=== PATIENT | male | born 1975 | race Caucasian/White ===

== ENCOUNTER → 2020-07-30 10:11 | Outpatient (CLI) | payer OTHER, SELFPAY ==
--- NOTE | 2020-07-30 10:14 | DI.RAD.S_ITS ---
PROCEDURE: XR CERVICAL SPINE 2V OR 3V INDICATIONS: neck pain TECHNIQUE: 3 view(s) of the cervical spine were acquired. COMPARISON: None. FINDINGS: Bones: No fractures or dislocations to the T1 level. The lateral masses of C1 appear intact on the odontoid view. No suspicious bony lesions. Moderate degenerative disc disease C5-6 and moderate to moderately severe degeneration at C6-7. On the frontal view there is convex rightward scoliosis centered at the midcervical spine and asymmetric left greater than right facet osteoarthritis. Soft tissues: No prevertebral soft tissue swelling. IMPRESSION: Degenerative disc disease and facet osteoarthritis greater on the left than right, to the degree that significant spinal and foraminal stenosis would be suspected. Dictated by: Dayton Harden M.D. on 07/30/2020 at 11:13 Approved by: Dayton Harden M.D. on 07/30/2020 at 11:14
[2020-07-30 11:06] LABS: Add Manual Diff / Slide Review NO; Basophils Absolute Auto 100 /uL (0-100); Basophils Percent Auto 2.1 % (0-2); Eosinophils Absolute Auto 100 /uL (0-450); Eosinophils Percent Auto 2.2 % (2-4); Hematocrit 43.6 % (41-53); Hemoglobin 15.2 g/dL (13.5-17.5); Lymphocytes Absolute Auto 1300 /uL (1100-4500); Lymphocytes Percent Auto 28.4 % (25-40); Mean Corpuscular HGB Conc 34.8 % (30-36); Mean Corpuscular Hemoglobin 29.1 PG (26-34); Mean Corpuscular Volume 83.6 fL (80-100); Monocytes Absolute Auto 500 /uL (0-900); Monocytes Percent Auto 10.5 % (3-14); Neutrophils Absolute Auto 2600 /uL (1500-7000); Neutrophils Percent Auto 56.8 % (50-75); Platelet Count 254 X10^3/uL (150-400); Red Blood Cell Count 5.21 X10^6/uL (4.5-5.9); Red Cell Distribution Width 14.1 % (11.6-14.8); White Blood Cell Count 4.6 X10^3/uL (4.5-11.0)
[2020-07-30 11:17] LABS: Hemoglobin A1C% w Est Avg Glu 5.5 % (4.0-6.0)
[2020-07-30 11:42] LABS: Alanine Aminotransferase 36 IU/L (<50); Albumin 4.4 g/dL (3.5-5.0); Albumin Globulin Ratio 1.6 (1.0-2.8); Alkaline Phosphatase 63 U/L (38-126); Aspartate Aminotransferase 35 IU/L (17-59); BUN Creatinine Ratio 11.1 (6-22); Bilirubin Total 0.2 mg/dL (0.2-1.3); Blood Urea Nitrogen 10 mg/dL (9-20); Calcium 9.6 mg/dL (8.4-10.2); Carbon Dioxide 27 mmol/L (22-32); Chloride 104 mmol/L (98-107); Cholesterol 207 mg/dL (140-199); Estimated Glomerular Filt Rate > 60.0 mL/min (>60); Globulin 2.8 g/dL (1.7-4.1); Glucose 130 mg/dL (70-100); HDL Cholesterol 33 mg/dL (40-60); HEMOLYSIS < 15 (0-50); LDL Cholesterol Calculated 117 mg/dL (<100); Potassium 4.1 mmol/L (3.4-5.1); Sodium 139 mmol/L (137-145); Total Protein 7.2 g/dL (6.3-8.2); Triglycerides 283 mg/dL (35-150)
[2020-07-30 12:13] LABS: TSH w/ Reflex to FT4 1.58 uIU/mL (0.47-4.68)
== END ==
PROVIDERS: PCP Family Medicine; Referring Provider Family Medicine; Visit Provider Family Medicine
DX: M54.2 Cervicalgia (principal); E78.00 Pure hypercholesterolemia, unspecified; Z13.1 Encounter for screening for diabetes mellitus; Z13.228 Encounter for screening for other metabolic disorders; Z13.29 Encounter for screening for other suspected endocrine disorder; Z76.89 Persons encountering health services in other specified circumstances; Z82.49 Family history of ischemic heart disease and other diseases of the circulatory system
CPT/HCPCS: 36415; 72040; 80053; 80061; 83036; 84443; 85025

== ENCOUNTER → 2020-09-01 11:35 | Outpatient (CLI) | payer OTHER, SELFPAY ==
--- NOTE | 2020-09-01 11:36 | DI.MRI.S_ITS ---
PROCEDURE: MR CERVICAL SPINE WO CON INDICATIONS: Pain TECHNIQUE: Noncontrast sagittal T1 spin echo and T2 fast spin echo, sagittal STIR, foraminal oblique sagittal T2 fast spin echo, and axial gradient echo or T2 fast spin echo through the cervical spine. COMPARISON: [facility], CR, XR CERVICAL SPINE 2V OR 3V, 07/30/2020, 11:34. FINDINGS: Image quality: Excellent. Alignment and Curvature: There is moderate diffuse rightward curvature of the cervical spine. Loss of normal cervical lordosis is present. Mild grade 1 retrolisthesis of C3 on C4 is present. Bone Marrow: Marrow demonstrates normal overall signal. C7 hemangioma. Sagittal images demonstrate probable segmentation anomalies involving the upper thoracic spine. There is caninization of the C7 vertebral body. Spinal Cord: Visualized spinal cord has normal size and signal. No cerebellar tonsillar herniation. Paraspinous Soft Tissues: No paravertebral masses. Prevertebral soft tissues are normal in thickness. C2-C3: Mild disc desiccation. No significant canal, or foraminal stenosis. C3-C4: Mild disc desiccation and diffuse disc bulge. Mild facet and uncovertebral hypertrophy bilaterally. Mild canal stenosis. No right foraminal stenosis. Mild left foraminal stenosis. C4-C5: Mild disc height loss and desiccation. Mild diffuse disc bulge. Moderate left and mild right facet and uncovertebral hypertrophy. Mild canal stenosis. No right foraminal stenosis. Severe left foraminal stenosis with associated left L5 nerve root compression. C5-C6: Mild disc desiccation and diffuse disc bulge. Mild facet and uncovertebral hypertrophy, left greater than right. Mild canal stenosis. Moderate left and mild right foraminal stenosis. C6-C7: Moderate disc desiccation. Moderate diffuse disc bulge. Mild facet and uncovertebral hypertrophy bilaterally. Mild canal stenosis. Mild bilateral left greater than right foraminal stenosis. C7-T1: Mild disc desiccation and diffuse disc bulge. Mild facet and uncovertebral hypertrophy bilaterally. Mild canal stenosis. Mild bilateral foraminal stenosis. IMPRESSION: 1. Multilevel degenerative disc and facet disease, as well as uncovertebral hypertrophy. 2. Mild multilevel canal stenosis. 3. Multilevel foraminal stenoses, worst at C4-C5 on the left where there is associated intraforaminal nerve root compression. Recommend correlation with clinical symptoms to ascertain relevance of this finding. 4. Incompletely visualized segmentation anomalies within the upper thoracic spine. Thoracic spine CT could be performed for further assessment, if clinically indicated. There is associated rightward curvature of the cervical spine. Dictated by: Galina Gregory M.D. on 09/03/2020 at 8:42 Approved by: Galina Gregory M.D. on 09/03/2020 at 8:49
== END ==
PROVIDERS: PCP Family Medicine; Referring Provider Family Medicine; Visit Provider Family Medicine
DX: M47.812 Spondylosis without myelopathy or radiculopathy, cervical region (principal); M50.31 Other cervical disc degeneration, high cervical region; M48.02 Spinal stenosis, cervical region
CPT/HCPCS: 72141

== ENCOUNTER → 2021-05-10 07:58 | Outpatient (CLI) | payer OTHER, SELFPAY ==
[2021-05-10 09:52] LABS: Alanine Aminotransferase 44 IU/L (<50); Albumin 4.4 g/dL (3.5-5.0); Albumin Globulin Ratio 1.5 (1.0-2.8); Alkaline Phosphatase 68 U/L (38-126); Aspartate Aminotransferase 43 IU/L (17-59); BUN Creatinine Ratio 16.3 (6-22); Bilirubin Total 0.5 mg/dL (0.2-1.3); Blood Urea Nitrogen 14 mg/dL (9-20); Calcium 9.3 mg/dL (8.4-10.2); Carbon Dioxide 24 mmol/L (22-32); Chloride 103 mmol/L (98-107); Cholesterol 199 mg/dL (140-199); Estimated Glomerular Filt Rate > 60.0 mL/min (>60); Globulin 2.9 g/dL (1.7-4.1); Glucose 100 mg/dL (70-100); HDL Cholesterol 29 mg/dL (40-60); HEMOLYSIS < 15 (0-50); LDL Cholesterol Calculated 122 mg/dL (<100); Potassium 4.5 mmol/L (3.4-5.1); Sodium 138 mmol/L (137-145); Total Protein 7.3 g/dL (6.3-8.2); Triglycerides 241 mg/dL (35-150)
== END ==
PROVIDERS: PCP Family Medicine; Referring Provider Family Medicine; Visit Provider Family Medicine
DX: B35.1 Tinea unguium (principal); E78.1 Pure hyperglyceridemia
CPT/HCPCS: 36415; 80053; 80061

== ENCOUNTER → 2021-11-22 07:43 | Outpatient (CLI) | payer OTHER, SELFPAY ==
[2021-11-22 07:57] LABS: Add Manual Diff / Slide Review NO; Basophils Absolute Auto 0 /uL (0-100); Basophils Percent Auto 0.6 % (0-2); Eosinophils Absolute Auto 200 /uL (0-450); Eosinophils Percent Auto 3.4 % (2-4); Hematocrit 43.2 % (41-53); Hemoglobin 15.1 g/dL (13.5-17.5); Lymphocytes Absolute Auto 1400 /uL (1100-4500); Mean Corpuscular HGB Conc 34.9 % (30-36); Mean Corpuscular Hemoglobin 28.9 PG (26-34); Mean Corpuscular Volume 82.6 fL (80-100); Monocytes Absolute Auto 500 /uL (0-900); Monocytes Percent Auto 10.5 % (3-14); Neutrophils Absolute Auto 2500 /uL (1500-7000); Neutrophils Percent Auto 54.5 % (50-75); Platelet Count 247 X10^3/uL (150-400); Red Blood Cell Count 5.23 X10^6/uL (4.5-5.9); White Blood Cell Count 4.6 X10^3/uL (4.5-11.0)
[2021-11-22 08:27] LABS: Alanine Aminotransferase 57 IU/L (<50); Albumin 4.3 g/dL (3.5-5.0); Albumin Globulin Ratio 1.4 (1.0-2.8); Alkaline Phosphatase 71 U/L (38-126); Aspartate Aminotransferase 52 IU/L (17-59); Bilirubin Total 0.6 mg/dL (0.2-1.3); Blood Urea Nitrogen 16 mg/dL (9-20); Calcium 9.1 mg/dL (8.4-10.2); Carbon Dioxide 24 mmol/L (22-32); Chloride 104 mmol/L (98-107); Cholesterol 209 mg/dL (140-199); Estimated Glomerular Filt Rate > 60 mL/min (>60); Globulin 3.1 g/dL (1.7-4.1); Glucose 107 mg/dL (70-100); HDL Cholesterol 33 mg/dL (40-60); HEMOLYSIS < 15 (0-50); LDL Cholesterol Calculated 122 mg/dL (<100); Potassium 4.2 mmol/L (3.4-5.1); Sodium 139 mmol/L (137-145); Total Protein 7.4 g/dL (6.3-8.2); Triglycerides 271 mg/dL (35-150)
== END ==
PROVIDERS: PCP Family Medicine; Referring Provider Family Medicine; Visit Provider Family Medicine
DX: D22.9 Melanocytic nevi, unspecified (principal); E78.5 Hyperlipidemia, unspecified; R03.0 Elevated blood-pressure reading, without diagnosis of hypertension; Z00.00 Encounter for general adult medical examination without abnormal findings
CPT/HCPCS: 36415; 80053; 80061; 85025

== ENCOUNTER → 2022-02-14 08:50 | Outpatient (CLI) | payer OTHER, SELFPAY ==
[2022-02-14 10:40] LABS: Hemoglobin A1C% w Est Avg Glu 5.6 % (4.0-6.0)
[2022-02-14 10:46] LABS: Alanine Aminotransferase 46 IU/L (<50); Albumin 4.3 g/dL (3.5-5.0); Albumin Globulin Ratio 1.5 (1.0-2.8); Alkaline Phosphatase 71 U/L (38-126); Aspartate Aminotransferase 48 IU/L (17-59); BUN Creatinine Ratio 14.9 (6-22); Bilirubin Total 0.5 mg/dL (0.2-1.3); Blood Urea Nitrogen 14 mg/dL (9-20); Calcium 9.1 mg/dL (8.4-10.2); Carbon Dioxide 26 mmol/L (22-32); Chloride 103 mmol/L (98-107); Estimated Glomerular Filt Rate > 60 mL/min (>60); Globulin 2.9 g/dL (1.7-4.1); Glucose 89 mg/dL (70-100); HEMOLYSIS < 15 (0-50); Potassium 4.6 mmol/L (3.4-5.1); Sodium 138 mmol/L (137-145); Total Protein 7.2 g/dL (6.3-8.2)
== END ==
PROVIDERS: PCP Family Medicine; Referring Provider Family Medicine; Visit Provider Family Medicine
DX: R73.9 Hyperglycemia, unspecified (principal)
CPT/HCPCS: 36415; 80053; 83036

== ENCOUNTER 2022-10-07 02:43 | Emergency (ER) | payer OTHER, SELFPAY ==
[2022-10-07 02:48] VITALS: BP 136/79
[2022-10-07 02:49] VITALS: PULSE 80; O2SAT 97
[2022-10-07 02:53] VITALS: BP 136/79; PULSE 79; RESP 17; TEMP 36.7; O2SAT 96; BMI 34.9
[2022-10-07 03:00] VITALS: PULSE 78; O2SAT 97
--- NOTE | 2022-10-07 03:03 | ED_ITS ---
HPI - General Adult General Chief complaint: Syncope Stated complaint: passed out and hit face on cabinet bleeding Time Seen by Provider: 10/07/22 02:47 Source: patient Mode of arrival: Ambulatory Limitations: no limitations History of Present Illness HPI narrative: Patient is a 47-year-old male who is here for evaluation of injuries that he sustained after passing out at home. He states he has been doing a colonoscopy prep. He was sitting on the toilet 20 states he felt like his heart was beating fast and he passed out falling forward hitting his head on a cabinet door. He reports no other injuries from the event. No neck pain. He does have bleeding from his forehead and nose and upper lip. No dental discomfort. He has passed out 1 time in the past but that was many years ago after he donated blood. He is not on anticoagulation. Related Data Home Medications Medication Instructions Recorded Confirmed ResMed AirSense 11 05/29/21 07/10/22 Previous Rx's Medication Instructions Recorded celecoxib 200 mg capsule (Celebrex) 200 mg PO DAILY #90 caps 07/10/22 fenofibrate nanocrystallized 145 145 mg PO DAILY #90 tabs 07/10/22 mg tablet lisinopril 20 mg tablet 20 mg PO DAILY #90 tabs 07/10/22 Allergies Allergy/AdvReac Type Severity Reaction Status Date / Time Penicillins Allergy Severe Swelling Verified 07/10/22 14:34 (Childhood) morphine Allergy Intermediate DIFFICULT Verified 07/10/22 14:34 BREATHING Review of Systems Constitutional Constitutional: Reports system reviewed and no additional complaints, except as documented ENT Ears, Nose, Mouth, and Throat: Reports system reviewed and no additional complaints, except as documented Integumentary/Breasts Skin/Breast: Reports system reviewed and no additional complaints, except as documented Neurologic Neurologic: Reports system reviewed and no additional complaints, except as documented Hematologic/Lymphatic On Anticoagulants: No Patient History Medical History Allergies (~2005) Ankle pain (~2005) Biceps tendinitis Borderline hyperlipidemia Borderline hypertension Chicken pox (~1980) Degenerative joint disease of hand Facet arthropathy, cervical Family history of coronary artery disease Foraminal stenosis of cervical region Fractures (~2005) Headache (~1998) HNP (herniated nucleus pulposus), cervical Hyperglycemia Hypertension Hypertriglyceridemia Impingement syndrome of left shoulder Impingement syndrome of right shoulder Itchy skin (~2011) Knee pain (~2018) Multiple nevi Sleep apnea (~2017) Tinnitus (~2012) Toenail fungus Well adult exam Surgical History Anesthesia History of ankle surgery (~2005) History of cholecystectomy (~2000) History of photorefractive keratectomy (~2007) Family History Father Mental health problem Mother Cervical cancer Diabetes mellitus Sister Chiari syndrome Grandfather History of heart disease Hypertension Stroke Grandmother Diabetes mellitus History of heart disease Hyperlipidemia Grandmother Mental health problem Social History Smoking Status: Former smoker Tobacco: How many years used: 18 quit status: considering quitting alcohol intake: current substance use type: marijuana Smoking Status: Former smoker alcohol intake frequency: holidays/special occasions only Substance Use Type: does not use Exam Initial Vital Signs Initial Vital Signs: Vital Signs Temperature 98.1 F 10/07/22 02:53 Pulse Rate 79 10/07/22 02:53 Respiratory Rate 17 10/07/22 02:53 Blood Pressure 136/79 10/07/22 02:53 Pulse Oximetry 96 10/07/22 02:53 Oxygen Delivery Method Room Air 10/07/22 02:53 Const General: cooperative, comfortable and No ill appearing HENMT Nose: nares normal, No epistaxis and No nasal discharge Mouth: oral mucosae normal Teeth and gingiva: dentition normal Back/Spine/Pelvis Cervical Spine: No cervical spinal tenderness Skin Other: Patient with a 3 cm laceration in the mid portion of his forehead. Right below that there is a small skin tear. He also has a skin tear over the bridge of his nose and small abrasions over his left nares. He also has an abrasion to his left upper lip. Neuro General: patient alert, patient awake, patient oriented x3 and moves all extremities Extrem General: capillary refill normal Procedures Laceration Repair Laceration 1: Site: face (Forehead) Size (cm): 3 Description: linear Depth: simple, single layer Local Anesthetic: lidocaine 1% Amount of anesthesia used (mL): 3 Pre-repair: wound explored and irrigated extensively Skin layer closed with: nylon Skin layer suture size: 5-0 Number of sutures: 7 Technique: simple, interrupted Scores GCS Marly coma scale eye opening: Spontaneous [place] coma scale verbal response: Orientated Marly coma scale motor response: Obey commands Marly coma scale total score: 15 Nexus Score for C-Spine Focal Neurologic deficit present: No Midline spinal tenderness present: No Altered level of conciousness present: No Intoxication present: No Distracting Injury Present: No Nexus Criteria for C-spine: 0 Course Orders Ordered: ED Orders 10/07/22 02:48 EKG-12 Lead Stat Discontinued Medications Bacitracin (Bacitracin Oint 0.9 Gm Pckt) 1 applic TOP NOW ONE Stop: 10/07/22 03:17 Last Admin: 10/07/22 03:57 Dose: 1 applic Documented By: GABY Lidocaine HCl (Lidocaine 1% (Pf) 2ml) 2 ml INJ NOW ONE Stop: 10/07/22 03:51 Lidocaine HCl (Lidocaine 1% (Pf) 5 Ml) 5 ml INJ NOW ONE Stop: 10/07/22 03:55 Last Admin: 10/07/22 03:56 Dose: 5 ml Documented By: SB Vital Signs Vital signs: Vital Signs - 8 hr 10/07/22 02:53 Temperature 98.1 F Pulse Rate 79 Respiratory Rate 17 Blood Pressure 136/79 Pulse Oximetry 96 Oxygen Delivery Method Room Air Medical Decision Making ECG Data Attestation: I personally reviewed and interpreted this ECG as follows: Interpretation: Sinus rhythm Ventricular rate is 78 Normal axis Normal QRS Normal QTC No ST T wave changes MDM Narrative Medical decision making narrative: Patient did have a syncopal episode while sitting on the toilet. Most likely related to his prep from the colonoscopy. He had 1 injury to his forehead that required stitches that was closed as described above the rest of the areas were skin tears and abrasions not requiring stitches. His cervical spine is cleared by nexus criteria. No other injuries reported by the patient or found on the exam. We will hold on any further workup for now. Patient was given return precautions and follow-up instructions. He expressed understanding and agreement. Discharge Plan Departure Patient Disposition: Home Clinical Impression: Laceration, Abrasion of skin, Syncope Instructions: DI for Syncope in Adults (Fainting), DI for Laceration Repair Activity Restrictions/Additional Instructions: The stitches do need to be removed in the next 7-10 days. This can be done by the primary doctor or the walk-in clinic. You can shower like normal. You can put topical antibiotic ointment over the area. I would not be surprised if you develop some bruising/black eyes over the next couple days. You can put ice over the areas if needed. Return to the emergency department for new symptoms. Prescriptions: No Action lisinopril 20 mg tablet 20 mg PO DAILY Qty: 90 3RF Rx Instructions: half pill qd for 4 days then 1 pill qd celecoxib [Celebrex] 200 mg capsule 200 mg PO DAILY Qty: 90 2RF fenofibrate nanocrystallized 145 mg tablet 145 mg PO DAILY Qty: 90 3RF (DME) ResMed AirSense 11 See Rx Instructions .Route .MEDSUPPLY Rx Instructions: CPAP Min: 8 Max: 10 DME: PHM Referrals: Beny Damon DO [Primary Care Provider] - Stand Alone Forms: Patient Portal/API
[2022-10-07] MEDS: LIDOCAINE 1% (PF) 5 ML INJ (03:56)
[2022-10-07] MEDS: BACITRACIN OINT 0.9 GM PCKT 1 APPLIC TOP (03:57)
[2022-10-07 04:25] VITALS: PULSE 73; O2SAT 97
[2022-10-07 04:26] VITALS: BP 119/75; PULSE 72; O2SAT 96
== END 2022-10-07 04:34 | disposition home or self-care (01) ==
PROVIDERS: Emergency Provider Emergency Medicine; PCP Family Medicine
DX: S01.81XA Laceration without foreign body of other part of head, initial encounter (principal); R55 Syncope and collapse; W22.8XXA Striking against or struck by other objects, initial encounter
CPT/HCPCS: 93005

== ENCOUNTER 2022-10-07 10:13 | Day surgery (SDC) | payer OTHER, SELFPAY ==
[2022-10-07 11:09] VITALS: BMI 34.9
[2022-10-07 11:20] VITALS: BP 123/83; PULSE 71; RESP 19; TEMP 36.4; O2SAT 99
[2022-10-07] MEDS: LACTATED RINGERS 1,000 ML 200 ML IV (11:20)
--- NOTE | 2022-10-07 12:19 | PM.HP.1 ---
History of Present Illness History of Present Illness Date Patient Seen: 10/07/22 Time Patient Seen: 12:19 [place] [facility] [place]: The patient presents for colorectal screening. They have never had any previous examination for such. No personal or family history of colon cancer. On further history denies any recent gastrointestinal symptoms. No nausea, vomiting, abdominal pain, loss of appetite, unexplained weight loss, change in bowel habits, or blood per rectum. [facility] Medical History Allergies (~2005) Ankle pain (~2005) Biceps tendinitis Borderline hyperlipidemia Borderline hypertension Chicken pox (~1980) Degenerative joint disease of hand Facet arthropathy, cervical Family history of coronary artery disease Foraminal stenosis of cervical region Fractures (~2005) Headache (~1998) HNP (herniated nucleus pulposus), cervical Hyperglycemia Hypertension Hypertriglyceridemia Impingement syndrome of left shoulder Impingement syndrome of right shoulder Itchy skin (~2011) Knee pain (~2017) Multiple nevi Sleep apnea (~2016) Tinnitus (~2012) Toenail fungus Well adult exam Surgical History Anesthesia History of ankle surgery (~2005) History of cholecystectomy (~2000) History of photorefractive keratectomy (~2007) Family History Father Mental health problem Mother Cervical cancer Diabetes mellitus Sister Chiari syndrome Grandfather History of heart disease Hypertension Stroke Grandmother Diabetes mellitus History of heart disease Hyperlipidemia Grandmother Mental health problem Social History household members: spouse Smoking Status: Former smoker Tobacco: How many years used: 18 quit status: considering quitting alcohol intake: current substance use type: marijuana Meds Home Medications and Allergies Home Medications Medication Instructions Recorded Confirmed Type ResMed AirSense 11 05/29/21 07/10/22 History celecoxib 200 mg capsule (Celebrex) 200 mg PO DAILY #90 caps 07/10/22 07/10/22 Rx fenofibrate nanocrystallized 145 145 mg PO DAILY #90 tabs 07/10/22 07/10/22 Rx mg tablet lisinopril 20 mg tablet 20 mg PO DAILY #90 tabs 07/10/22 07/10/22 Rx Allergies Allergy/AdvReac Type Severity Reaction Status Date / Time Penicillins Allergy Severe Swelling Verified 07/10/22 14:34 (Childhood) morphine Allergy Intermediate DIFFICULT Verified 07/10/22 14:34 BREATHING Exam Vital Signs (past 8 hours): - 10/07/22 11:20 Temperature 97.5 F L Pulse Rate 71 Respiratory Rate 19 Blood Pressure 123/83 Pulse Oximetry 99 Oxygen Delivery Method Room Air Oxygen Delivery Method Room Air Narrative Exam Narrative: General adult man alert oriented no acute distress Assessment & Plan Assessment & Plan narrative: The patient requires colorectal screening and colonoscopy is recommended. Technical details were discussed. Risks, benefits, alternatives explained. Risks including but not limited to myocardial infarction, aspiration, bleeding, pain, missed lesion, incomplete examination, need for further radiographic studies, colonic perforation, and need for major abdominal surgery were discussed. All questions were answered to their satisfaction, and they are in agreement with this plan.
--- NOTE | 2022-10-07 12:37 | PM.OP.COLON ---
Operative Date/Time/Diagnoses Date of procedure: 10/07/22 Time of procedure: 12:38 Pre-op diagnosis: Colorectal screening Post-op diagnosis: same Procedure & Clinicians Study performed: Colonoscopy Same procedure as scheduled: Yes Indications: Colorectal screening Surgeon: Garrison Canales Procedure Notes Procedure in detail: The history and physical was performed/updated and the patient is ASA class is 2. The procedure was discussed in detail with the patient. Potential risks complications including infection, bleeding, missed diagnosis, perforation, need for surgery, and were explained. Their questions were answered and informed consent was obtained. Patient was brought to the procedure room and placed standard monitoring equipment. The patient's vital signs were monitored continuously throughout the entire procedure. Prior to starting time-out was performed. The patient was placed in the left lateral recumbent position. Procedural sedation was administered by anesthesia. Examination began with a thorough inspection of the perianal area there was no evidence of fissures, fistulae, external hemorrhoids or cutaneous malignancy. The colonoscopy scope was then placed into the anal canal and was advanced to the cecum, which was identified by the ileocecal valve, the appendiceal orifice and the confluence of the taenia. The scope was then slowly withdrawn examining colon thoroughly in all directions, irrigating it of any residual stool. Normal healthy colon. No masses polyps or inflammation. The patient tolerated the procedure well. They will be discharged once criteria are met. The prep was of good/excellent quality. The withdrawl time was 6 minutes. Specimen(s): none sent Impression: Normal colonoscopy Post-procedure Recommendations: Colonoscopy in 10 years and High fiber diet Disposition: same day surgery
[2022-10-07 12:41] VITALS: BP 98/75; PULSE 78; RESP 13; TEMP 36.7; O2SAT 95
[2022-10-07 12:48] VITALS: BP 110/79; PULSE 75; RESP 14; O2SAT 97
[2022-10-07 12:51] VITALS: BP 121/87; PULSE 72; RESP 17; O2SAT 97
[2022-10-07 12:53] VITALS: BP 120/89; PULSE 69; RESP 11; TEMP 36.8; O2SAT 99
== END 2022-10-07 13:13 | disposition home or self-care (01) ==
PROVIDERS: PCP Family Medicine; Referring Provider Surgery; Visit Provider Surgery
PROC: 0DJD8ZZ Inspection of Lower Intestinal Tract, Via Natural or Artificial Opening Endoscopic (ICD-10-PCS; CPT 45378; principal; 2022-10-07 11:15)
DX: Z12.11 Encounter for screening for malignant neoplasm of colon (principal); S01.81XA Laceration without foreign body of other part of head, initial encounter; R55 Syncope and collapse; W22.8XXA Striking against or struck by other objects, initial encounter
CPT/HCPCS: 45378; 12013; 93005; 99282; 99283; J2704; J3010

== ENCOUNTER → 2023-02-04 07:23 | Outpatient (CLI) | payer OTHER, SELFPAY ==
[2023-02-04 08:18] LABS: Add Manual Diff / Slide Review NO; Basophils Absolute Auto 100 /uL (0-100); Basophils Percent Auto 2.4 % (0-2); Eosinophils Absolute Auto 100 /uL (0-450); Eosinophils Percent Auto 2.8 % (2-4); Hematocrit 41.2 % (41-53); Hemoglobin 14.4 g/dL (13.5-17.5); Lymphocytes Absolute Auto 1500 /uL (1100-4500); Lymphocytes Percent Auto 34.5 % (25-40); Mean Corpuscular Hemoglobin 28.8 PG (26-34); Mean Corpuscular Volume 82.4 fL (80-100); Monocytes Absolute Auto 500 /uL (0-900); Monocytes Percent Auto 10.3 % (3-14); Neutrophils Absolute Auto 2200 /uL (1500-7000); Platelet Count 256 X10^3/uL (150-400); Red Cell Distribution Width 13.6 % (11.6-14.8); White Blood Cell Count 4.4 X10^3/uL (4.5-11.0)
[2023-02-04 08:39] LABS: Alanine Aminotransferase 47 IU/L (<50); Albumin Globulin Ratio 1.4 (1.0-2.8); Alkaline Phosphatase 71 U/L (38-126); Aspartate Aminotransferase 41 IU/L (17-59); BUN Creatinine Ratio 14.3 (6-22); Bilirubin Total 0.4 mg/dL (0.2-1.3); Blood Urea Nitrogen 12 mg/dL (9-20); Calcium 8.9 mg/dL (8.4-10.2); Carbon Dioxide 27 mmol/L (22-32); Chloride 103 mmol/L (98-107); Cholesterol 184 mg/dL (140-199); Estimated Glomerular Filt Rate > 60 mL/min (>60); Globulin 2.8 g/dL (1.7-4.1); Glucose 114 mg/dL (70-100); HDL Cholesterol 29 mg/dL (40-60); HEMOLYSIS < 15 (0-50); LDL Cholesterol Calculated 104 mg/dL (<100); Potassium 4.5 mmol/L (3.4-5.1); Sodium 136 mmol/L (137-145); Total Protein 6.8 g/dL (6.3-8.2); Triglycerides 254 mg/dL (35-150)
[2023-02-04 09:03] LABS: TSH w/ Reflex to FT4 1.72 uIU/mL (0.47-4.68)
== END ==
PROVIDERS: PCP Family Medicine; Referring Provider Family Medicine; Visit Provider Family Medicine
DX: I10 Essential (primary) hypertension (principal); M54.9 Dorsalgia, unspecified; R73.9 Hyperglycemia, unspecified
CPT/HCPCS: 36415; 80053; 80061; 84443; 85025

== ENCOUNTER → 2023-07-01 09:05 | Outpatient (CLI) | payer OTHER, SELFPAY ==
[2023-07-01 10:10] LABS: Semen Sperm Prescence Post-Vas Absent (ABSENT)
== END ==
LOC: LAB 09:06
PROVIDERS: PCP Family Medicine; Referring Provider Family Medicine; Visit Provider Family Medicine
DX: Z30.09 Encounter for other general counseling and advice on contraception (principal)
CPT/HCPCS: 89321

== ENCOUNTER → 2023-07-02 07:47 | Outpatient (CLI) | payer OTHER, SELFPAY ==
--- NOTE | 2023-07-02 07:49 | DI.RAD.S_ITS ---
PROCEDURE: XR LUMBAR SPINE 2-3V INDICATIONS: eval back pain TECHNIQUE: 3 views of the lumbar spine were acquired. COMPARISON: None. FINDINGS: Bones: 5 [id number] vertebrae are present. There is multilevel trace retrolisthesis. Multilevel disc and foraminal narrowing are present most severe at L5-S1. No vertebral body compression fractures. No suspicious bony lesions. Soft tissues: Overlying bowel gas pattern is normal. No suspicious soft tissue calcifications. IMPRESSION: No acute bony abnormality. Degenerative changes most notable at L5-S1. Dictated by: Henna Brooks M.D. on 07/02/2023 at 14:31 Approved by: Henna Brooks M.D. on 07/02/2023 at 14:32
[2023-07-02 12:06] LABS: Alanine Aminotransferase 35 IU/L (<50); Albumin Globulin Ratio 1.3 (1.0-2.8); Alkaline Phosphatase 79 U/L (38-126); BUN Creatinine Ratio 16.5 (6-22); Bilirubin Total 0.5 mg/dL (0.2-1.3); Blood Urea Nitrogen 14 mg/dL (9-20); Calcium 9.7 mg/dL (8.4-10.2); Carbon Dioxide 26 mmol/L (22-32); Chloride 102 mmol/L (98-107); Cholesterol 175 mg/dL (140-199); Estimated Glomerular Filt Rate > 60 mL/min (>60); Globulin 3.1 g/dL (1.7-4.1); Glucose 90 mg/dL (70-100); HDL Cholesterol 31 mg/dL (40-60); HEMOLYSIS < 15 (0-50); LDL Cholesterol Calculated 106 mg/dL (<100); Potassium 4.3 mmol/L (3.4-5.1); Sodium 136 mmol/L (137-145); Total Protein 7.1 g/dL (6.3-8.2); Triglycerides 188 mg/dL (35-150)
[2023-07-03 15:10] LABS: Aspartate Aminotransferase 38 IU/L (17-59)
== END ==
LOC: RAD 07:49
PROVIDERS: PCP Family Medicine; Referring Provider Family Medicine; Visit Provider Family Medicine
DX: M54.9 Dorsalgia, unspecified (principal); Z00.00 Encounter for general adult medical examination without abnormal findings; M47.817 Spondylosis without myelopathy or radiculopathy, lumbosacral region
CPT/HCPCS: 36415; 72100; 80053; 80061

== ENCOUNTER → 2024-05-30 07:04 | Outpatient (CLI) | payer OTHER, SELFPAY ==
[2024-05-30 07:41] LABS: Add Manual Diff / Slide Review NO; Basophils Absolute Auto 100 /uL (0-100); Eosinophils Absolute Auto 200 /uL (0-450); Eosinophils Percent Auto 3.2 % (2-4); Hemoglobin 15.2 g/dL (13.5-17.5); Lymphocytes Absolute Auto 1500 /uL (1100-4500); Lymphocytes Percent Auto 28.6 % (25-40); Mean Corpuscular HGB Conc 34.6 % (30-36); Mean Corpuscular Hemoglobin 29.3 PG (26-34); Mean Corpuscular Volume 84.6 fL (80-100); Monocytes Absolute Auto 500 /uL (0-900); Monocytes Percent Auto 9.2 % (3-14); Neutrophils Absolute Auto 2900 /uL (1500-7000); Platelet Count 265 X10^3/uL (150-400); Red Cell Distribution Width 13.7 % (11.6-14.8); White Blood Cell Count 5.2 X10^3/uL (4.5-11.0)
[2024-05-30 08:16] LABS: Alanine Aminotransferase 52 IU/L (<50); Albumin 4.3 g/dL (3.5-5.0); Albumin Globulin Ratio 1.5 (1.0-2.8); Alkaline Phosphatase 80 U/L (38-126); Aspartate Aminotransferase 45 IU/L (17-59); BUN Creatinine Ratio 14.7 (6-22); Bilirubin Total 0.5 mg/dL (0.2-1.3); Blood Urea Nitrogen 14 mg/dL (9-20); Calcium 9.6 mg/dL (8.4-10.2); Carbon Dioxide 27 mmol/L (22-32); Chloride 103 mmol/L (98-107); Cholesterol 213 mg/dL (140-199); Estimated Glomerular Filt Rate > 60 mL/min (>60); Globulin 2.8 g/dL (1.7-4.1); Glucose 139 mg/dL (70-100); HDL Cholesterol 30 mg/dL (40-60); HEMOLYSIS < 15 (0-50); LDL Cholesterol Calculated 132 mg/dL (<100); Potassium 4.7 mmol/L (3.4-5.1); Sodium 138 mmol/L (137-145); Total Protein 7.1 g/dL (6.3-8.2); Triglycerides 253 mg/dL (35-150)
[2024-05-30 08:42] LABS: Prostate Specific Antigen 0.859 ng/mL (0.10-4.00)
== END ==
PROVIDERS: PCP Family Medicine; Referring Provider Family Medicine; Visit Provider Family Medicine
DX: Z00.00 Encounter for general adult medical examination without abnormal findings (principal); E78.5 Hyperlipidemia, unspecified; I10 Essential (primary) hypertension
CPT/HCPCS: 36415; 80053; 80061; 84153; 85025

== ENCOUNTER → 2024-12-12 07:06 | Outpatient (CLI) | payer OTHER, SELFPAY ==
[2024-12-12 08:02] LABS: Hemoglobin A1C% w Est Avg Glu 8.1 % (4.0-6.0)
[2024-12-12 08:25] LABS: Alanine Aminotransferase 37 IU/L (<50); Albumin 4.1 g/dL (3.5-5.0); Albumin Globulin Ratio 1.4 (1.0-2.8); Alkaline Phosphatase 77 U/L (38-126); Aspartate Aminotransferase 33 IU/L (17-59); BUN Creatinine Ratio 19.3 (6-22); Bilirubin Total 0.5 mg/dL (0.2-1.3); Blood Urea Nitrogen 16 mg/dL (9-20); Carbon Dioxide 26 mmol/L (22-32); Chloride 101 mmol/L (98-107); Cholesterol 185 mg/dL (140-199); Estimated Glomerular Filt Rate > 60 mL/min (>60); Globulin 2.9 g/dL (1.7-4.1); Glucose 143 mg/dL (70-99); HDL Cholesterol 28 mg/dL (40-60); HEMOLYSIS < 15 (0-50); LDL Cholesterol Calculated 102 mg/dL (<100); Potassium 4.3 mmol/L (3.4-5.1); Sodium 134 mmol/L (137-145); Triglycerides 276 mg/dL (35-150)
== END ==
PROVIDERS: PCP Family Medicine; Referring Provider Family Medicine; Visit Provider Family Medicine
DX: R73.03 Prediabetes (principal); E78.5 Hyperlipidemia, unspecified
CPT/HCPCS: 36415; 80053; 80061; 83036

== ENCOUNTER → 2025-01-18 08:51 | Outpatient (CLI) | payer OTHER, SELFPAY ==
--- NOTE | 2025-01-18 09:06 | DIAB.MNT ---
Initial Diabetes Medical Nutrition Therapy Assessment Name: Rashi Collins Date: 01/18/25 Time: -579f Dx: Type II Diabetes Provider: Nelson Preferred Learning Style: Reading, hands on Rashi presents for initial DM visit. Newly diagnosed T2DM. FH of DM with mother and maternal grandfather. Lost 10# with diet changes since diagnosis. use to have afternoon sweet but cut that out [employer] snacks at work, cut out these (ie sweets, energy drinks, potato chips, protein crackers) Cut out soda, did not like the diet version. Reports fast food once per week with , ie burger and half med kimball (60g CHO) OR chx nuggets and half med kimball (45gCHO) Diet Recall: 530a: homemade toast with butter made with olive oil x1, coffee with unsweet creamer 1030a: sandwich on ww (ham, cheese), with nuts low Na, water 3p: homemade soup 1.5-2c with crackers or homemade bread, coffee with unsweet creamer 7p: chicken with 1/3-1/2c potatoes and green beans OR homemade meatloaf with pork, carrots, onions, 1/3-1/2c mashed potatoes instant and green beans 730p: flavored Mohawk yogurt 1/4-1/3c water: 60-70oz coffee with unsweet cream Anthropometrics: Ht: 5'8 Wt: 217# reported 12/2024 Physical Activity: Recently bought a treadmill 45-60 mins daily, just set up a home gym, setting up home TRX Self-Monitoring Blood Glucose: None. No supplies, but he is interested. RD messaged PCP workgroup. Diabetes Medications: none Pertinent Labs: HgA1c: 8.1% 11/2024 Past Medical History: (Last Updated 12/13/24 @ 17:43 by Beny Damon DO) Allergies (~2005) Ankle pain (~2005) Biceps tendinitis Borderline hyperlipidemia Borderline hypertension Chicken pox (~1980) Chronic sinusitis Degenerative joint disease of hand Facet arthropathy, cervical Family history of coronary artery disease Foraminal stenosis of cervical region Fractures (~2005) GERD (gastroesophageal reflux disease) Headache (~1998) HNP (herniated nucleus pulposus), cervical Hyperglycemia Hypertension Hypertriglyceridemia Impingement syndrome of left shoulder Impingement syndrome of right shoulder Itchy skin (~2011) Between fingers Knee pain (~2018) Multiple nevi Onychomycosis Prediabetes Sleep apnea (~2016) Strain of fascia of lower back Tinnitus (~2012) Toenail fungus Type 2 diabetes mellitus Well adult exam Nutrition Rx: Carbohydrates: Meal:45g Snack:15-30g Nutrition Diagnosis: - Nutrition and food related knowledge deficit r/t newly dx T2DM aeb hgA1c 8.1% and pt report - Self monitoring deficit r/t no supplies for SMBG aeb pt report Intervention: This participant was very receptive. Provided appropriate educational handouts. Discussed the following topics: Completed intake assessment. Discussed barriers to care. Pathophysiology of T2DM HgA1c, its correlation to blood glucose numbers, and rationale for goal Potential for self-monitoring, how often, and when to check. Suggested checking at different times to evaluate meals Plate Method, impact of macronutrients on blood sugar, meal timing, carbohydrate counting, pairing macronutrients and spreading out carbohydrates for better blood glucose management Recommended servings for carbohydrates at meals and snacks Heart health nutrition Brainstormed appropriate meal plan based on food preferences Role of physical activity and following provider guidelines for safety Eating out recs Created SMART goals for patient self-care and success. 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
== END ==
LOC: DIET 08:51
PROVIDERS: PCP Family Medicine
DX: E11.9 Type 2 diabetes mellitus without complications (principal); Z71.3 Dietary counseling and surveillance; Z83.3 Family history of diabetes mellitus
CPT/HCPCS: 97802

== ENCOUNTER → 2025-03-28 06:57 | Outpatient (CLI) | payer OTHER, SELFPAY ==
[2025-03-28 08:05] LABS: Hemoglobin A1C% w Est Avg Glu 6.9 % (4.0-6.0)
[2025-03-28 08:17] LABS: Cholesterol 194 mg/dL (140-199); HDL Cholesterol 33 mg/dL (40-60); Triglycerides 212 mg/dL (35-150)
== END ==
LOC: LAB 06:58
PROVIDERS: PCP Family Medicine; Referring Provider Family Medicine; Visit Provider Family Medicine
DX: E11.9 Type 2 diabetes mellitus without complications (principal); I10 Essential (primary) hypertension; E78.5 Hyperlipidemia, unspecified; E78.1 Pure hyperglyceridemia
CPT/HCPCS: 36415; 80061; 83036

== ENCOUNTER → 2025-03-31 09:00 | Outpatient (CLI) | payer OTHER, SELFPAY ==
--- NOTE | 2025-03-31 09:02 | DIAB.MNTFU ---
Follow-up Diabetes Medical Nutrition Therapy Assessment Name: Rashi Collins Date: 03/31/25 Time: 8-775f Dx: Type II Diabetes Provider: Nelson Markham presents for DM visit. Newly diagnosed T2DM. Completed labs and hGA1 was 6.9%, down from 8.1%. Much improved and without medication management. States he would like to continue changes without medications and see if hgA1c can reduce more. Has been working on increasing physical activity. Though weight loss has plateaued per report, hoping activity with help with this. Coffee with mid afternoon with 1 small cookie. Has questions about whether cookie is something he should skip. Reading labels for sugars. This cookie is 8g net carbs. States weekends he sometimes forgets to take meds due to changes in routine. Considering setting an alarm. Diet Recall: 530a: homemade toast with butter made with olive oil x1, coffee with unsweet creamer 9-10a: nuts or nothing 1030a: sandwich on ww (ham, cheese, lettuce), occasionally chips 3p: homemade soup 1.5-2c with crackers or homemade bread, coffee with unsweet creamer 4p: coffee and 1 cookie 7p: soup with potato and 1/2-1 slice of bread OR fast food 1x per week (trying to choose lower carb option we have discussed) 730p: flavored yogurt 1/4-1/3c water: 60-70oz coffee with unsweet cream sometimes diet coke or coke zero Last Visit reported: Eye exam: UTD Apr 2024 Dental: >1 year Feet: does not check Plans to see hvac installation technician in Apr. Needs new glasses. Newest pair progressives are bothering him. Using old progressives that seem to fit better. Anthropometrics: Ht: 5'8 Wt: 215# reported 01/2025 217# reported 12/2024 Physical Activity: Walking 60 mins daily. Set up TRX this week and used once so far. Self-Monitoring Blood Glucose: Checking FBG and postprandial. None for review today. FBG around 100mg/dl and postprandial often <140mg/dl. Eating out once caused an elevation of 205mg/dl. Otherwise, reports mostly in goal BG. Interested in CGM sample today. Diabetes Medications: none Pertinent Labs: HgA1c: 8.1% 11/2024 6.9% 02/2025 Past Medical History: (Last Updated 12/13/24 @ 17:43 by Beny Damon, ) Allergies (~2005) Ankle pain (~2005) Biceps tendinitis Borderline hyperlipidemia Borderline hypertension Chicken pox (~1980) Chronic sinusitis Degenerative joint disease of hand Facet arthropathy, cervical Family history of coronary artery disease Foraminal stenosis of cervical region Fractures (~2005) GERD (gastroesophageal reflux disease) Headache (~1998) HNP (herniated nucleus pulposus), cervical Hyperglycemia Hypertension Hypertriglyceridemia Impingement syndrome of left shoulder Impingement syndrome of right shoulder Itchy skin (~2011) Between fingersKnee pain (~2017) Multiple nevi Onychomycosis Prediabetes Sleep apnea (~2016) Strain of fascia of lower back Tinnitus (~2012) Toenail fungus Type 2 diabetes mellitus Well adult exam Nutrition Rx: Carbohydrates: Meal:45gSnack:15-30g Nutrition Diagnosis: - Nutrition and food related knowledge deficit r/t newly dx T2DM aeb hgA1c 8.1% and pt report - in progress/improved Intervention: This participant was very receptive. Provided appropriate educational handouts. Discussed the following topics: Label reading BG checks vs CGM data CGM education, precautions, and placement info Physical activity CHO recs for meals and snacks BG and hgA1c goals Medication vs lifestyle management of DM Created SMART goals for patient self-care and success. Goals: Make room for the TRX equipment- met Check BG after smoothie- met Choose easier glucose tracking method for review- not met Get labs done pre next visit- met Try CGM sample- new Read food labels for net CHO- new Resistance training 2-3x per week- new Follow-up: [facility]AN[facility] ROSARIO follow-up in 1 month; PCP visit this month Latosha Helms RDN, [place] Certified Diabetes Care and Head Of Quality P: [phone] Thank you for this referral
== END ==
LOC: DIET 09:00
PROVIDERS: PCP Family Medicine; Referring Provider Family Medicine
DX: E11.9 Type 2 diabetes mellitus without complications (principal); Z71.3 Dietary counseling and surveillance
CPT/HCPCS: 97803

== ENCOUNTER → 2025-04-26 08:58 | Outpatient (CLI) | payer OTHER, SELFPAY ==
--- NOTE | 2025-05-24 09:46 | DIAB.FU ---
Follow-up Diabetes Education Assessment Name: Rashi Collins Date: 04/26/25 Time: 9-10am Dx: Type II Diabetes Provider: Nelson Markham presents for DM visit. Newly diagnosed T2DM this year. Has not attended an eye appt Checking feet daily, saw ebd teacher, no tingling or numbness or dryness. has been able to reduce BP meds with lifestyle changes. Noticed big increase in BG from 80 to 207mg/dl after a cookie Breakfast protein inconsistent Some higher CHO intake at dinner. Eye exam: UTD Apr 2024 Dental: >1 year Feet: checking Anthropometrics: Ht: 5'8 Wt: 223# reported 03/2025 215# reported 01/2025 217# reported 12/2024 Physical Activity: Treadmill 4 days per week, TRX exercises on/off 1-2x per week Self-Monitoring Blood Glucose: Wore sample CGM. Some excessive time >250mg/dl but overall doing well with TIR. TIR: 4% very high 23% high 73% in range 0% low or very low avmg/dl GMI: 6.9% std dev: 49mg/dl variance: 32.6% Diabetes Medications: none Pertinent Labs: HgA1c: 8.1% 11/2024 6.9% 02/2025 Past Medical History: (Last Updated 12/13/24 @ 17:43 by Beny Damon DO) Allergies (~2005) Ankle pain (~2005) Biceps tendinitis Borderline hyperlipidemia Borderline hypertension Chicken pox (~1980) Chronic sinusitis Degenerative joint disease of hand Facet arthropathy, cervical Family history of coronary artery disease Foraminal stenosis of cervical region Fractures (~2005) GERD (gastroesophageal reflux disease) Headache (~1998) HNP (herniated nucleus pulposus), cervical Hyperglycemia Hypertension Hypertriglyceridemia Impingement syndrome of left shoulder Impingement syndrome of right shoulder Itchy skin (~2011) Between fingersKnee pain (~2017) Multiple nevi Onychomycosis Prediabetes Sleep apnea (~2016) Strain of fascia of lower back Tinnitus (~2012) Toenail fungus Type 2 diabetes mellitus Well adult exam Intervention: This participant was very receptive. Provided appropriate educational handouts. Discussed the following topics: CGM trends foods that impact BG most in his diet Reducing DM complication risks Macropairing and CHO portions Medication management potential in future prn Created SMART goals for patient self-care and success. Goals: Try CGM sample- met Read food labels for net CHO- met Resistance training 2-3x per week- in progress Add protein to breakfast consistently- new Reduce dinner CHO portions- new Aim for TRX 1-2 x per week safely- new Make eye appt- new Follow-up: BLAN[facility] ROSARIO follow-up in 2-3 months per pt req. Latosha Helms RDN, [place] Certified Diabetes Care and Formulation Technician P: [phone] Thank you for this referral
== END ==
PROVIDERS: PCP Family Medicine; Referring Provider Family Medicine
DX: E11.9 Type 2 diabetes mellitus without complications (principal); Z71.3 Dietary counseling and surveillance
CPT/HCPCS: G0108